=== PATIENT | female | born 1995 | race Caucasian/White ===

== ENCOUNTER 2022-01-03 14:22 | Emergency (ER) | payer OTHER, MEDICAID ==
[2022-01-03] MEDS ORDERED: IBUPROFEN 800 MG TAB PO ONE (19:15)
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
[2022-01-03 21:36] VITALS: BP 129/84
== END 2022-01-03 21:19 | disposition home or self-care (01) ==
LOC: ED 14:22
DX: S39.92XA Unspecified injury of lower back, initial encounter (principal); S13.4XXA Sprain of ligaments of cervical spine, initial encounter; V89.2XXA Person injured in unspecified motor-vehicle accident, traffic, initial encounter; Y93.89 Activity, other specified; Y92.89 Other specified places as the place of occurrence of the external cause; Y99.8 Other external cause status
CPT/HCPCS: 72040; 72100; 99283